=== PATIENT | male | born 1965 | race Caucasian/White ===

== ENCOUNTER → 2019-12-15 | Outpatient (CLI) | payer OTHER | LOC: CAT 11:59 | PROVIDERS: ATTEND Neuromusculoskeletal Medicine & OMM | DX: Z13.6 Encounter for screening for cardiovascular disorders (principal); I25.10 Atherosclerotic heart disease of native coronary artery without angina pectoris; E78.00 Pure hypercholesterolemia, unspecified ==

== ENCOUNTER → 2021-05-09 | Outpatient (CLI) | payer OTHER ==
--- NOTE | 2021-05-14 21:24 | SLE ---
[facility] [place] [address] POLYSOMNOGRAPHY STUDY Name: ITZEL DUARTE Room #: REG [facility]#: [id number] Admission: 05/09/21 Attend Phys: Italo Galan MD Discharge: Date of : 67 Report #: [id number] THIS REPORT FOR: cc: Wallace Contreras,Italo Pearson MD ~ cc: Brigido Roth MD DATE OF SERVICE: 05/09/2021 SLEEP STUDY ATTENDING PHYSICIAN: Dr. Brigido Roth. The patient is 56 years old who weighs 249 pounds with a BMI of 31.1. The patient's Madison score was 11. The patient had a home sleep study recently and was found to have severe RICHIE at an AHI of 40 per hour. The patient returned to [facility] for CPAP titration study. During the night study, the patient spent 452 minutes in bed and slept for 398 minutes with a sleep efficiency of 88%. Sleep latency was 8.9 minutes with a REM latency of 122 minutes. Sleep architecture showed increased stage 1 and stage 2 sleep, normal slow wave and normal REM sleep. EKG monitoring revealed an average heart rate of 78 beats per minute. No sustained arrhythmias observed. PLMs were seen at an index of 4 per hour and 2 per hour caused EEG arousals. The patient was started on CPAP at a pressure of 5 cm water and titrated up to 17 cm of water. At the final pressure, the patient slept for 89 minutes. The patient had supine REM sleep. The patient's AHI was reduced to 6.9 per hour. There were 5 central apneas and 4 hypopneas at this pressure. Central apneas tend to resolve over a period of time. Oxygen saturation remained above 90% at the final pressure. IMPRESSION: 1. Severe obstructive sleep apnea, diagnosed by home sleep study. 2. No clinically significant periodic limb movements. RECOMMENDATIONS: 1. CPAP at 17 cm of water should be used on a nightly basis. The patient should have a followup in 4-6 weeks to assess compliance and to review the download data. 2. Weight loss to the ideal body weight is recommended. 3. Avoid [employer] depressants. [facility] [address] [place] [address] POLYSOMNOGRAPHY STUDY Name: ITZEL DUARTE Room #: REG [facility]#: [id number] Admission: 05/09/21 Attend Phys: Italo Galan MD Discharge: Date of : 67 Report #: [id number] 4. Cautioned regarding driving until symptoms of sleep apnea resolve with the use of CPAP. <ELECTRONICALLY SIGNED> By: Italo Galan MD 05/14/21 [id number] Italo Galan MD /nt
== END ==
LOC: SLEEPLAB 13:47
PROVIDERS: ATTEND Internal Medicine Critical Care Medicine
DX: G47.33 Obstructive sleep apnea (adult) (pediatric) (principal); Z20.822 Contact with and (suspected) exposure to COVID-19